=== PATIENT | female | born 1985 | race Caucasian/White ===

== ENCOUNTER 2016-10-10 18:50 | Emergency (ER) | payer OTHER ==
[~2016-10-10] VITALS: Ht 165.1 cm; Wt 75.0 kg
[~2016-10-10 18:50] MED LIST: COMBIVENT INH14.7 GM IH; LEVAQUIN 5500 MG/TAB PO; LORTAB 5/500 501 TAB PO; MOTRIN 600600 MG/TAB PO; PERCOCET 325 MG1 TA2 PO
[2016-10-10 18:56] VITALS: TEMP 99.5
[2016-10-10 19:59] LABS: BASO % 0.4 % (0.0-2.0); EOS # 0.1 (0.0-0.7); EOS % 1.1 % (0-4.0); GRAN # 3.7 (1.4-6.5); LYMPH # 1.5 (1.2-3.4); LYMPH % 25.7 % (20.0-51.0); MEAN CELL VOLUME 82 fl (80.0-100.0); MEAN CORPUSCULAR HGB CONC 32 g/dl (33.0-37.0); MEAN PLATELET VOLUME 10.2 fl (7.4-10.4); MONO # 0.4 (0.1-0.6); MONO % 7.4 % (1.7-9.3); PLATELET COUNT 307 K/mm3 (130-400); RED BLOOD COUNT 4.01 M/mm3 (4.10-5.30); REDCELL DISTRIBUTION WIDTH-CV 17.6 % (11.5-14.5); WHITE BLOOD COUNT 5.7 K/mm3 (4.8-10.8)
[2016-10-10 20:00] LABS: HEMATOCRIT 32.9 % (37.0-47.0); HEMOGLOBIN 10.5 g/dl (12.5-16.0); MEAN CORPUSCULAR HEMOGLOBIN 26 pg (27.0-31.0)
[2016-10-10 20:10] LABS: ADJUSTED CALCIUM 9.1 mg/dL (8.4-10.2); ALANINE AMINOTRANSFERASE 35 U/L (9-52); ALBUMIN 4.2 gm/dL (3.5-5.0); ALKALINE PHOSPHATASE 60 U/L (50-136); ANION GAP 10 mmol/L (7-16); BILIRUBIN,TOTAL 0.6 mg/dL (0.0-1.0); BLOOD UREA NITROGEN 17 mg/dL (7-17); CALCIUM 9.3 mg/dL (8.4-10.2); CARBON DIOXIDE 26 mmol/L (22-30); CHLORIDE 104 mmol/L (98-107); CREATINE KINASE 340 U/L (30-135); CREATININE, serum 0.82 mg/dL (0.52-1.25); GLUCOSE 97 mg/dL (74-106); SODIUM 140 mmol/L (137-145); TOTAL PROTEIN 7.1 gm/dL (6.4-8.2)
[2016-10-10 20:14] LABS: C-REACTIVE PROTEIN < 0.5 mg/dL (0.0-0.9)
[2016-10-10 20:19] LABS: TROPONIN-I < 0.012 ng/mL (0.000-0.034)
[2016-10-10 21:06] VITALS: BP 134/81; PULSE 49
== END 2016-10-10 21:06 | disposition home or self-care (01) ==
LOC: COL.ER 18:50
PROVIDERS: Emergency Medicine
DX: G43.909 Migraine, unspecified, not intractable, without status migrainosus (principal); R00.1 Bradycardia, unspecified; R20.2 Paresthesia of skin; R29.898 Other symptoms and signs involving the musculoskeletal system
CPT/HCPCS: J1885; J7030

== ENCOUNTER 2019-01-08 23:30 | Inpatient (IN) | payer OTHER ==
[~2019-01-08] VITALS: Ht 167.6 cm; Wt 95.5 kg
--- NOTE | 2019-01-08 23:45 | NUR ---
G2L1. 39-0. Ambulatory to LDR 5 with spouse. Clean gown on. EFM and TOCO explained and applied. Pt states she lost her mucous plug at 1500 today and she has been having contractions since then. Pt states her water broke as she was in the hospital parking lot, reports large amount of clear fluid. Denies vaginal bleeding. Reports good movement. Amniotest positive. SVE 4-5/70/-2, clear fluid notes on exam glove. Pericare provided. Plan of care explained to pt and who verbalize understanding. Assessment completed. Call light within reach. 0011: updated on pts status. See physcian notification. 0029: IV started and labs obtained via IV site. LR bolus infusing without difficulties. Pt requesting to use hot tub at this time. Plan of care explained to pt who verbalizes undersanding. Consents explained and signed. 0102: FHR strip reactive. Montiors off and pt to ambulate in hallway.
[2019-01-08 23:57] VITALS: BP 133/85; PULSE 56; TEMP 98.6
[2019-01-09] VITALS (20 sets, daily range): BP systolic 98–154; BP diastolic 58–99; PULSE 48–126; TEMP 98.2–98.9
[2019-01-09] MEDS ORDERED: SYNTHROID0.112 MG/T PO
[2019-01-09] MEDS ORDERED: CALCIUM CARBON650 M2 PO (00:01)
[2019-01-09] MEDS ORDERED: PRENATAL MVI PO (00:01)
[2019-01-09] MEDS ORDERED: CLARITIN 1010 MG/TAB PO (00:02)
[2019-01-09 00:57] LABS: BASO % 0.2 % (0.0-2.0); EOS # 0.2 (0.0-0.7); EOS % 1.9 % (0-4.0); GRAN # 7.3 (1.4-6.5); GRAN % 69.8 % (42.2-75.2); HEMOGLOBIN 12.5 g/dl (12.5-16.0); LYMPH % 18.9 % (20.0-51.0); MEAN CELL VOLUME 92 fl (80.0-100.0); MEAN CORPUSCULAR HEMOGLOBIN 31 pg (27.0-31.0); MEAN CORPUSCULAR HGB CONC 34 g/dl (33.0-37.0); MEAN PLATELET VOLUME 11.9 fl (7.4-10.4); MONO # 0.8 (0.1-0.6); PLATELET COUNT 182 K/mm3 (130-400); RED BLOOD COUNT 3.99 M/mm3 (4.10-5.30); REDCELL DISTRIBUTION WIDTH-CV 12.9 % (11.5-14.5)
[2019-01-09 01:05] LABS: HEMATOCRIT 36.8 % (37.0-47.0)
--- NOTE | 2019-01-09 02:53 | NUR ---
Pt requesting epidural at this time. LR bolus infusing without difficulties. 0256: JOHNY Quinn notified of epidural. Pt off monitors to void. 0309: Difficulty tracing FHR due to Pt position on Birthing ball. RN adjusting montiors. Pt working through contractions.
--- NOTE | 2019-01-09 03:22 | NUR ---
Pt assisted to EOB for epidural. Kai MCCLAIN at bedside for epidural placement. Difficulty tracing FHR due to maternal poisiton, RN at bedside adjusting monitors. Pulse ox applied. Pt grunting and states she feels the urge to push at this time. Breathing techniques instructed to pt. RN remains at pt's side. 0328: Single shot administered by Kai MCCLAIN. See anesthesia records. 0333: Pt laid flat. SVE C/+1. Pt repositioned to wedge left position and instructed to breath through contractions. 0334: notified and requested at hospital. 0348: at bedside for delivery. Pt assisted into footplates and instructed on pushing with contractions. Recurrent variable decels noted with pushing. at bedside reviewing FHR strip. 0400: Pt continues pushing with provider. Orders to start pitocin at 2mus/hr received. Pitocin explained to pt and started at this time. 0404: Pt straight catherized at this time with approximately 50mls of urine return. Recurrent varibale decels noted while pushing with contractions. 0430: Pericare provided and pt repositioned to high parra position to labor down. Plan of care explained to pt by who verbalizes understanding. 0452: Pt returns to pushing with this RN. Recurrent varibale decels noted while pushing with contractions. remains on unit at nurses station. 0500: requested at bedside for delivery. Pt assisted into footplates and continues pushing with provider. 0506: Spontaneous vaginal delivery of viable male by . Pitocin turned off. Infants nares and mouth suctioned per provider and to mothers chest where dried and stimulated by TAURUS Post. Cord clamped X2 and cut by FOB. Care of assumed by TAURUS Post. 0511: Spontaneous delivery of intact placenta by . Pitocin resummed at 333mus/hr per protocol. Fundal message by this RN. Fundus firm, midline and bleeding minimal. Second degree midline perineal laceration repaired by . Pericare provided, pads changed and pt repositioned in bed. Swelling noted to perineum, ice pack applied. Plan of care and safety precautions explained to pt and who verbalize understanding. See doctor dications and anesthesia records.
[2019-01-10 00:30] VITALS: BP 114/66; PULSE 55; TEMP 97.9
[2019-01-10 04:00] VITALS: BP 124/76; PULSE 52; TEMP 97.9
[2019-01-10 08:00] VITALS: BP 115/73; PULSE 50; TEMP 98
--- NOTE | 2019-01-10 10:45 | NUR ---
Initial visit; Parents thanked [employer] for offering congratulations and God's blessings for the of their son. [employer] Admin thanked family for choosing [facility].
[2019-01-10] MEDS ORDERED: IBU800 M1 PO (11:58)
[2019-01-10 16:31] VITALS: BP 124/75; PULSE 50; TEMP 98.4
[2019-01-10 20:00] VITALS: BP 103/61; PULSE 53; TEMP 98.1
[2019-01-11 07:00] VITALS: BP 130/72; PULSE 49; TEMP 98.6
== END 2019-01-11 11:00 | disposition home or self-care (01) | DRG 807 ==
LOC: LDRO 23:30 → LDR 23:30 → LDRO 01-09 00:12 → LDR 01-09 00:13 → OB 01-09 00:13
PROVIDERS: Student in an Organized Health Care Education/Training Program; ADMIT Obstetrics & Gynecology
PROC: 10E0XZZ Delivery of Products of Conception, External Approach (ICD-10-PCS; principal; 2019-01-09)
PROC: 0KQM0ZZ Repair Perineum Muscle, Open Approach (ICD-10-PCS; 2019-01-09)
DX: O42.92 Full-term premature rupture of membranes, unspecified as to length of time between rupture and onset of labor (principal); Z37.0 Single live birth; O99.284 Endocrine, nutritional and metabolic diseases complicating childbirth; E03.9 Hypothyroidism, unspecified; O99.214 Obesity complicating childbirth; O70.1 Second degree perineal laceration during delivery; O99.62 Diseases of the digestive system complicating childbirth; K21.9 Gastro-esophageal reflux disease without esophagitis; Z3A.39 39 weeks gestation of pregnancy
CPT/HCPCS: J2590; J2795; J7120